=== PATIENT | male | born 1960 | race Two or more races ===

== ENCOUNTER 2019-01-28 21:06 | Emergency (ER) | payer MEDICAID ==
[~2019-01-28] VITALS: Ht 175.3 cm; Wt 70.5 kg
[2019-01-28] MEDS ORDERED: TETANUS, DIPHTHERIA, PERTUSSIS VAC/PF 0.5ML (>7YR OLD) IM ONE (23:15)
[2019-01-28] MEDS ORDERED: IBUPROFEN 600MG TABLET PO ONE (23:15)
[2019-01-28] MEDS ORDERED: AMOXICILLIN/POTASSIUM CLAVULANATE 875/125MG TAB PO ONE (23:15)
[2019-01-29 00:13] VITALS: BP 166/90
== END 2019-01-29 00:16 | disposition home or self-care (01) ==
LOC: ER 21:06
DX: S81.852A Open bite, left lower leg, initial encounter (principal); I10 Essential (primary) hypertension; W54.0XXA Bitten by dog, initial encounter; Y93.89 Activity, other specified; Y92.89 Other specified places as the place of occurrence of the external cause; Y99.8 Other external cause status; Z98.890 Other specified postprocedural states
CPT/HCPCS: 73590; 90471; 90715; 99283

== ENCOUNTER 2024-05-17 11:20 | Inpatient (IN) | payer MEDICAID, OTHER ==
[~2024-05-17] VITALS: Ht 172.7 cm; Wt 73.5 kg
[2024-05-17 11:53] LABS: BASOPHILS % 0.7 % (0.0-2.0); HEMATOCRIT. 46.3 % (42.0-52.0); HEMOGLOBIN. 15.6 g/dL (14.0-18.0); LYMPHOCYTES % 11.6 % (20.0-50.0); MEAN CORPUSCULAR HEMOGLOBIN 32.1 pg (28.0-32.0); MEAN CORPUSCULAR HGB CONC 33.6 g/dL (31.0-37.0); MEAN CORPUSCULAR VOLUME 95.5 fL (80.0-94.0); MEAN PLATELET VOLUME 8.7 fl (7.4-10.4); MONOCYTES % 12.1 % (2.0-8.0); NEUTROPHILS % 75.6 % (40.0-76.0); PLATELET 215 x1000/uL (130-400); RED BLOOD CELL COUNT 4.85 mill/uL (4.7-6.1); RED CELL DISTRIBUTION WIDTH 13.7 % (11.6-14.6); WHITE BLOOD COUNT 8.5 x1000/uL (4.5-11.0)
[2024-05-17] MEDS ORDERED: METOCLOPRAMIDE HCL 10MG/2ML VIAL IV ONE (12:00)
[2024-05-17] MEDS ORDERED: ACETAMINOPHEN 325MG TABLET PO ONE (12:00)
[2024-05-17 12:05] LABS: CHLORIDE 103 mEq/L (98-107); POTASSIUM 3.5 mEq/L (3.5-5.1); SODIUM 138 mEq/L (136-145)
[2024-05-17 12:06] LABS: CARBON DIOXIDE 26 mEq/L (21-32)
[2024-05-17 12:07] LABS: CALCIUM 9.3 mg/dL (8.7-10.4)
[2024-05-17 12:10] LABS: TROPONIN I HIGH SENSITIVITY 10 ng/L (3.0-53)
[2024-05-17 12:11] LABS: CREATININE 1.1 mg/dL (0.6-1.3); GLUCOSE 106 mg/dL (70-105); UREA NITROGEN BLOOD 11 mg/dL (9-23)
[2024-05-17] MEDS: LACTATED RINGERS 500 ML IV SCH (14:11)
[2024-05-17] MEDS: ACETAMINOPHEN 325MG TABLET PO NR (14:11)
[2024-05-17] MEDS: METOCLOPRAMIDE HCL 10MG/2ML VIAL IV NR (14:12)
[2024-05-17 15:48] LABS: TROPONIN I HIGH SENSITIVITY 11 ng/L (3.0-53)
[2024-05-17 20:00] VITALS: BP 164/100; PULSE 79; RESP 18; TEMP 37.11408; O2SAT 99
[2024-05-17] MEDS: LABETALOL 5MG/ML 4ML INJ IV PRN (21:11)
[2024-05-18] VITALS: BP 158/101; PULSE 79; RESP 20; TEMP 37.503; O2SAT 99
[2024-05-18 04:00] VITALS: BP 164/103; PULSE 81; RESP 20; TEMP 36.9474; O2SAT 98
[2024-05-18] MEDS ORDERED: BUPR-114 PO (10:27)
[2024-05-18] MEDS ORDERED: TRAZ-251 PO (10:27)
[2024-05-18] MEDS ORDERED: LURA120T2 PO (10:27)
[2024-05-18] MEDS ORDERED: ESCI20TA37 PO (10:27)
[2024-05-18] MEDS ORDERED: ZOLPIDEM TARTRATE 5MG TABLET PO PRN (10:30)
[2024-05-18] MEDS ORDERED: ACETAMINOPHEN 325MG TABLET PO PRN (10:30)
[2024-05-18] MEDS ORDERED: ONDANSETRON HCL 4MG/2ML INJ IV PRN (10:30)
[2024-05-18] MEDS: ENOXAPARIN 40MG/0.4ML SYR SUBCUT SCH (11:07)
[2024-05-18 15:41] VITALS: BP 149/100; PULSE 80; RESP 18; TEMP 36.3068
[2024-05-18] MEDS: CLONIDINE 0.1MG TABLET PO PRN (15:50)
[2024-05-18 16:00] VITALS: BP 149/100; PULSE 80; RESP 18; TEMP 36.28068; O2SAT 98
[2024-05-18 18:40] LABS: *AMPHETAMINES SCREEN URINE NEGATIVE (NEGATIVE); *BARBITURATES SCREEN URINE NEGATIVE (NEGATIVE); *BENZODIAZEPINES SCREEN URINE NEGATIVE (NEGATIVE); *COCAINE SCREEN URINE NEGATIVE (NEGATIVE); CANNABINOID URINE SCREEN PRESUMPTIVE POSITIVE (NEGATIVE); ECSTASY MDMA SCREEN URINE NEGATIVE (NEGATIVE); METHADONE URINE SCREEN NEGATIVE (NEGATIVE); OPIATES URINE SCREEN NEGATIVE (NEGATIVE); PHENCYCLIDINE URINE SCREEN NEGATIVE (NEGATIVE)
[2024-05-18 19:17] LABS: CREATINE KINASE MB FRACTION 0.5 ng/mL (0.5-3.6)
[2024-05-18] MEDS: INFLUENZA VACCINE 05/PF 0.5 ML SYRINGE IM ONE (19:45)
[2024-05-18 20:00] VITALS: BP 142/91; PULSE 69; RESP 18; TEMP 36.61404; O2SAT 98
[2024-05-18] MEDS: TRAZODONE HCL 50MG TABLET PO SCH (20:42)
[2024-05-18] MEDS: BUPROPION HCL 150MG SR TABLET PO SCH (20:42)
[2024-05-18] MEDS: ATORVASTATIN CALCIUM 10MG TABLET PO SCH (20:42)
[2024-05-19] VITALS: BP 127/84; PULSE 77; RESP 20; TEMP 36.55848; O2SAT 98
[2024-05-19 00:37] LABS: CREATINE KINASE MB FRACTION 0.6 ng/mL (0.5-3.6)
[2024-05-19 04:00] VITALS: BP 124/62; PULSE 76; RESP 18; TEMP 36.78072; O2SAT 100
[2024-05-19 06:17] LABS: CARBON DIOXIDE 25 mEq/L (21-32); CHLORIDE 102 mEq/L (98-107); POTASSIUM 3.7 mEq/L (3.5-5.1); SODIUM 136 mEq/L (136-145)
[2024-05-19 06:23] LABS: CREATININE 1.1 mg/dL (0.6-1.3); GLUCOSE 97 mg/dL (70-105); TRIGLYCERIDE 102 mg/dL (0-150); UREA NITROGEN BLOOD 12 mg/dL (9-23)
[2024-05-19 06:24] LABS: LDL CHOLESTEROL 69 mg/dL (5-100)
[2024-05-19 06:25] LABS: CHOLESTEROL 141 mg/dL (<200); HDL CHOLESTEROL 51 mg/dL (>55)
[2024-05-19 06:32] LABS: BASOPHILS % 0.5 % (0.0-2.0); EOSINOPHILS % 0.3 % (0.0-5.0); HEMATOCRIT. 44.9 % (42.0-52.0); LYMPHOCYTES % 16.4 % (20.0-50.0); MEAN CORPUSCULAR HEMOGLOBIN 31.7 pg (28.0-32.0); MEAN CORPUSCULAR HGB CONC 33.3 g/dL (31.0-37.0); MEAN CORPUSCULAR VOLUME 95.1 fL (80.0-94.0); MEAN PLATELET VOLUME 9.2 fl (7.4-10.4); MONOCYTES % 11.5 % (2.0-8.0); NEUTROPHILS % 71.3 % (40.0-76.0); PLATELET 205 x1000/uL (130-400); RED BLOOD CELL COUNT 4.72 mill/uL (4.7-6.1); RED CELL DISTRIBUTION WIDTH 13.6 % (11.6-14.6)
[2024-05-19 08:00] VITALS: BP 144/93; PULSE 71; RESP 18; TEMP 36.61404; O2SAT 99
[2024-05-19] MEDS: CITALOPRAM HYDROBROMIDE 10MG TABLET PO SCH (10:02)
[2024-05-19] MEDS: ASPIRIN 81MG TABLET PO SCH (10:02)
[2024-05-19] MEDS ORDERED: LOSA100T33 MT (16:08)
[2024-05-19 18:07] VITALS: BP 142/60; PULSE 74; TEMP 97.8; O2SAT 98
== END 2024-05-19 18:35 | disposition home or self-care (01) | DRG 199 ==
LOC: ER 11:20 → 5WST 14:02 → 7EST 05-18 15:52
PROVIDERS: ADMIT Internal Medicine; ATTEND Internal Medicine
DX: I16.0 Hypertensive urgency (principal); Z86.73 Personal history of transient ischemic attack (TIA), and cerebral infarction without residual deficits; I10 Essential (primary) hypertension; Z91.148 Patient's other noncompliance with medication regimen for other reason
CPT/HCPCS: 36415; 70551; 71045; 80048; 80061; 80305; 82550; 82553; 84484; 85025; 93005; 93306; 99285; J1650; J2765; J3490